=== PATIENT | female | born 1970 | race Caucasian/White ===

== ENCOUNTER 2017-05-24 21:08 | Emergency (ER) | payer BC ==
[2017-05-24] MEDS ORDERED: Ibuprofen TAB* 600 MG PO ONE (22:55)
[2017-05-25] MEDS ORDERED: Ibuprofen TAB* 600 MG PO ONE (00:10)
[2017-05-25] MEDS ORDERED: Cyclobenzaprine TAB* 10 MG PO ONE (00:10)
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
[2017-05-25 01:30] VITALS: BP 133/65
--- NOTE | 2017-05-25 07:46 | RAD ---
INDICATION: Intracranial injury COMPARISON: None TECHNIQUE: Noncontrast axial source images were acquired from the skull base to the vertex. FINDINGS: Ventricles/sulci: The ventricles and cisterns are normal in size and configuration for age. Brain parenchyma: There is no focal parenchymal finding, evidence of intracranial mass, or intracranial mass effect. Intracranial hemorrhage:None. Extra-axial spaces: There are no abnormal extra axial fluid collections or evidence of extra-axial mass. Calvarium: There is no calvarial fracture or other calvarial abnormality. Scalp: There is no evidence of scalp or extracalvarial soft tissue abnormality. Paranasal sinuses/mastoid: The paranasal sinuses and mastoid air cells are clear. Other: None. IMPRESSION: NEGATIVE EXAMINATION
== END 2017-05-25 00:38 | disposition home or self-care (01) ==
LOC: ED 21:08
DX: S00.93XA Contusion of unspecified part of head, initial encounter (principal); S09.90XA Unspecified injury of head, initial encounter; H53.8 Other visual disturbances; R51 Headache; X58.XXXA Exposure to other specified factors, initial encounter; Y93.9 Activity, unspecified; Y92.9 Unspecified place or not applicable
CPT/HCPCS: 70450; 99282; A9270-GY